=== PATIENT | female | born 1985 | race Caucasian/White ===

== ENCOUNTER 2019-12-23 00:29 | Emergency (ER) | payer OTHER ==
[2019-12-23] MEDS ORDERED: traMADol 50 MG STARTER PACK 3 TAB BTL PO STA (01:09)
[2019-12-23] MEDS ORDERED: traMADol 50 MG TAB PO STA (01:09)
[2019-12-23] MEDS ORDERED: PENICILLIN VK 500MG STARTER 4 TAB BTL PO STA (01:09)
[2019-12-23] MEDS ORDERED: PENICILLIN V POTASSIUM 250 MG TAB PO STA (01:09)
--- NOTE | 2019-12-23 01:11 | ED ---
ENT HPI - General Chief complaint: Dental/Oral Stated complaint: Dental pain Time Seen by Provider: 12/23/19 00:46 Source: patient, RN notes reviewed, old records reviewed Mode of arrival: ambulatory Limitations: no limitations - History of Present Illness Initial comments: This is a 34-year-old female DF for evaluation of recent dental illness. Patien t coming in for dental caries dental pain with recent traumatic injury that occurred at the dentist, patient has soft palate injury with dental abscess. Patient on antibiotics out of antibiotics patient pain medication out of pain medication, requesting medication refill, no current bleeding MD complaint: tooth pain -: week(s) Location: tooth # (Right upper molar left lower molar) Severity: moderate Severity scale (1-10): 7 Quality: stabbing, aching Consistency: constant Improves with: none Worsens with: none Context- Dental: history of dental caries, poor dental care, tooth knocked out - Related Data Previous Rx's Medication Instructions Recorded Hydrocodone/Acetaminophen [[place] 1 tab PO Q6HR PRN 3 Days #12 tab 12/23/19 5-325] Penicillin V Potassium [Pen Vee K] 500 mg PO Q6HR #40 tablet 12/23/19 Allergies Allergy/AdvReac Type Severity Reaction Status Date / Time morphine Allergy Anaphylaxis Verified 12/23/19 00:45 Review of Systems ROS Statement: Those systems with pertinent positive or pertinent negative responses have been documented in the HPI. ROS Other: All systems not noted in ROS Statement are negative. Past Medical History Past Medical History: No Reported History History of Any Multi-Drug Resistant Organisms: None Reported Past Surgical History: Section, Hysterectomy Past Psychological History: No Psychological Hx Reported Smoking Status: Never smoker Past Alcohol Use History: Rare Past Drug Use History: None Reported General Exam - General Exam Comments Initial Comments: Significant soft palate injury with multiple dental fractures Limitations: no limitations General appearance: alert, in no apparent distress Head exam: Present: atraumatic, normocephalic, normal inspection Eye exam: Present: normal appearance, PERRL, EOMI. Absent: scleral icterus, conjunctival injection, periorbital swelling ENT exam: Present: normal exam, mucous membranes moist Neck exam: Present: normal inspection. Absent: tenderness, meningismus, lymphadenopathy Respiratory exam: Present: normal lung sounds bilaterally. Absent: respiratory distress, wheezes, rales, rhonchi, stridor Cardiovascular Exam: Present: regular rate, normal rhythm, normal heart sounds. Absent: systolic murmur, diastolic murmur, rubs, gallop, clicks GI/Abdominal exam: Present: soft, normal bowel sounds. Absent: distended, tenderness, guarding, rebound, rigid Extremities exam: Present: normal inspection, full ROM, normal capillary refill. Absent: tenderness, pedal edema, joint swelling, calf tenderness Back exam: Present: normal inspection Neurological exam: Present: alert, oriented X3, CN II-XII intact Psychiatric exam: Present: normal affect, normal mood Skin exam: Present: warm, dry, intact, normal color. Absent: rash Course Vital Signs 12/23/19 00:40 Temperature 98.7 F Pulse Rate 89 Respiratory 17 Rate Blood Pressure 138/80 O2 Sat by Pulse 100 Oximetry Medical Decision Making - Medical Decision Making 34 female will refer for more follow-up regarding dental care, patient given pain control antibiotics here in the ER and can be discharged home Disposition Clinical Impression: Dental abscess, Dental caries Disposition: HOME SELF-CARE Condition: Good Instructions (If sedation given, give patient instructions): Dental Abscess (ED), Toothache (ED) Prescriptions: Hydrocodone/Acetaminophen [[place] 5-325] 1 tab PO Q6HR PRN 3 Days #12 tab PRN Reason: Pain Penicillin V Potassium [Pen Vee K] 500 mg PO Q6HR #40 tablet Is patient prescribed a controlled substance at d/c from ED?: No Referrals: [facility],Clinic [Primary Care Provider] - 1-2 days
[2019-12-23] MEDS ORDERED: HYDROcodone/APAP 5-325MG 1 EACH TAB PO STA (01:48)
[2019-12-23 01:53] VITALS: BP 119/78; PULSE 87; RESP 18; TEMP 97
== END 2019-12-23 01:53 | disposition home or self-care (01) ==
LOC: EC 00:29
DX: K04.7 Periapical abscess without sinus (principal); K02.9 Dental caries, unspecified; Z88.5 Allergy status to narcotic agent
CPT/HCPCS: 99283